=== PATIENT | male | born 2000 | race Hispanic/Latino ===

== ENCOUNTER 2020-02-24 17:56 | Emergency (ER) | payer OTHER ==
[~2020-02-24 17:56] MED LIST: CALCIUM CHLORIDE 1,000 MG/10 ML SYRINGE IV ONE; SODIUM BICARB 8.4% 50 MEQ/50 ML SYRINGE IV ONE
--- NOTE | 2020-02-24 18:15 | Emergency Department Report ---
ED CPR HPI - General Stated Complaint: AMS Time Seen by Provider: 02/24/20 18:08 Source: EMS Mode of arrival: Stretcher Limitations: Other (cardiac arrest) - History of Present Illness Initial Comments: This is a 19-year-old male who presented in cardiac arrest. He is a patient at and then a detox center. He was last seen alert at 1625?. 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 Today he had complaints of headache. He received gabapentin and lorazepam today. Upon EMS arrival, medical staff performed chest compressions. AED was placed on patient. No shock was advised. EMS detected asystole. Tucker airway inserted. 3 doses of epinephrine given to patient. ACLS initiated by EMS at 1728 Accucheck 177 per EMS No other history is able to be obtained due to patient's clinical status. Complaint: found unresponsive Place: other ([facility]) Bystander CPR Performed: Yes AED Applied by Bystander/Hamper Maker Machine: Yes Shock Advised: No Initial Findings in the Field: unresponsive ROSC in the Field: No Associated Injuries: No Treatments Prior to Arrival: epinephrine mgs #, other (Tucker airway) ED Review of Systems ROS: Stated complaint: AMS Other details as noted in HPI Comment: Unobtainable due to pts medical conditions (Unresponsive status) ED Past Medical Hx - Past Medical History Additional medical history: Unable to be obtained - Surgical History Additional Surgical History: Unable to be obtained ED Physical Exam - General Limitations: Other (Cardiac arrest unresponsive) General appearance: other (Pale lifeless no spontaneous movement) - Head Head exam: Present: atraumatic, normocephalic - Eye Eye exam: Present: other (Dried corneas, pupils fixed unresponsive) - ENT ENT exam: Present: mucous membranes dry, other (Airway device in place) - Neck Neck exam: Present: normal inspection - Respiratory Respiratory exam: Present: other (No spontaneous respirations, equal chest rise) - Cardiovascular Cardiovascular Exam: Present: other (No palpated pulse no cardiac activity auscultated) - GI/Abdominal GI/Abdominal exam: Absent: distended - Extremities Exam Extremities exam: Present: other (No obvious deformity) - Neurological Exam Neurological exam: Present: other (Unresponsive lifeless) - Psychiatric Psychiatric exam: Present: other (Unresponsive lifeless) - Skin Skin exam: Present: pallor ED Medical Decision Making - Medical Decision Making Upon arrival, chest compressions were continued. ACLS algorithm treatment continued with epinephrine, calcium, sodium bicarbonate. Tucker airway provided adequate oxygenation according to pulse oximetry. ACLS performed for 35 minutes, time of 1800. Critical care attestation.: If time is entered above; I have spent that time in minutes in the direct care of this critically ill patient, excluding procedure time. ED Disposition Clinical Impression: Cardiac arrest Disposition: DC-20 Is pt being admited?: No Does the pt Need Aspirin: No Time of Disposition: 18:00
== END 2020-02-24 22:37 ==
LOC: ED 17:56
DX: I46.9 Cardiac arrest, cause unspecified (principal)
CPT/HCPCS: 92950